=== PATIENT | male | born 1965 | race Caucasian/White ===

== ENCOUNTER 2020-10-31 06:58 | Emergency (ER) | payer BC ==
[2020-10-31] MEDS ORDERED: NA CHLORIDE 0.9% 1,000 ML ONE (08:04)
[2020-10-31 08:09] LABS: Potassium 4.2 mmol/L (3.5-5.1)
[2020-10-31 08:19] LABS: Absolute Lymphocytes (CBC) 0.7 K/uL (0.7-4.9); Basophils % 0.7 % (0-1.3); Hematocrit 41.9 % (39.6-49.0); Lymphocytes % 9.7 % (15.3-44.8); MPV 9.2 fL (7.6-11.3); RBC Red Blood Cell Count 4.91 M/uL (4.33-5.43)
--- NOTE | 2020-10-31 08:27 | RAD REPORT ---
EXAM DESCRIPTION: Yani Single View10/31/2020 8:16 am CLINICAL HISTORY: Pneumonia COMPARISON: none FINDINGS: Lungs appear mildly hazy. Heart is normal size IMPRESSION: Lungs appear mildly hazy which may indicate mild pneumonia
--- NOTE | 2020-10-31 08:28 | EDPHYS ---
Physician Documentation [facility] Name: Howard Ordaz Jr Age: 55 yrs Sex: Male : 1965 Arrival Date: 10/31/2020 Time: 06:59 Bed 5 Private MD: ED Physician John Hernandez HPI: 10/31 07:23 This 55 yrs old Male presents to ER via Unassigned with complaints of rn Shortness Of Breath - covid+. 07:23 The patient has shortness of breath with light activity. Onset: The symptoms/episode rn began/occurred 1 week(s) ago. Duration: The symptoms are intermittent. The patient's shortness of breath is aggravated by exertion, light activity, is alleviated by rest. Associated signs and symptoms: Pertinent positives: non-productive cough, fever, Pertinent negatives: hemoptysis, loss of consciousness. Severity of symptoms: At their worst the symptoms were mild in the emergency department the symptoms are unchanged. The patient has not experienced similar symptoms in the past. The patient has not recently seen a physician. Reports COVID + 1 week ago, symptoms began 1.5 weeks ago, came in today because heart rate elevated. Reports mild sob with exertion. NO hx of heart or lung problems. Overall, doesn't feel like got worse. Just felt weak this morning so came to get checked. NO syncope. No chest pain. . Historical: - Allergies: 07:29 No Known Allergies; iw - Home Meds: 07:29 Lisinopril Oral [Active]; iw - PMHx: 07:29 Hypertension; iw - PSHx: 07:29 testicular torsion; iw - Immunization history:: Adult Immunizations not up to date. - Social history:: Smoking status: Patient/guardian denies using tobacco, the patient reports quitting approximately 4 years ago. - Family history:: not pertinent. - Hospitalizations: : No recent hospitalization is reported. 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 Exam: 07:23 Constitutional: This is a well developed, well nourished patient who is awake, alert, rn and in no acute distress. Ambulatory to room without difficulty or distress Head/Face: Normocephalic, atraumatic. Eyes: Pupils equal round and reactive to light, extra-ocular motions intact. ENT: NO stridor Cardiovascular: Regular rate and rhythm. No pulse deficits. Respiratory: Speaking full sentences. No increased work of breathing, no retractions or nasal flaring. Abdomen/GI: soft, non-tender Skin: Warm, dry MS/ Extremity: Pulses equal, no cyanosis. Neuro: Awake and alert, GCS 15, normal gait. 08:00 ECG was reviewed by the Attending Physician. rn Vital Signs: 07:26 BP 121 / 80; Pulse 87; Resp 18 S; Temp 98.2; Pulse Ox 94% on R/A; Weight 90.72 kg; iw Height 5 ft. 8 in. (172.72 cm); 08:39 BP 121 / 79; Pulse 83; Resp 17 S; Pulse Ox 97% on R/A; jd3 07:26 Body Mass Index 30.41 (90.72 kg, 172.72 cm) iw MDM: 07:15 Patient medically screened. rn 08:26 Differential diagnosis: Bronchitis pneumonia, pulmonary edema. Differential diagnosis: rn dehydration, electrolyte disorder. Data reviewed: vital signs, nurses notes, lab test result(s), radiologic studies, plain films, and as a result, I will discharge patient. Counseling: I had a detailed discussion with the patient and/or guardian regarding: the historical points, exam findings, and any diagnostic results supporting the discharge/admit diagnosis, lab results, radiology results, the need for outpatient follow up, to return to the emergency department if symptoms worsen or persist or if there are any questions or concerns that arise at home. Response to treatment: the patient's symptoms have mildly improved after treatment, and as a result, I will discharge patient. Special discussion: I discussed with the patient/guardian in detail that at this point there is no indication for admission to the hospital. It is understood, however, that if the symptoms persist or worsen the patient needs to return immediately for re-evaluation. ED course: No oxygen requirement, cxr with mild bilateral infiltrates, no pneumothorax. Already on steroids, will dc home with pcp f/u and return precautions, should be getting over this soon. . 10/31 07:23 Order name: CBC with Diff; Complete Time: 08:24 rn 10/31 07:23 Order name: Basic Metabolic Panel; Complete Time: 08:24 rn 10/31 07:23 Order name: XRAY Chest (1 view); Complete Time: 08:28 rn 10/31 07:23 Order name: IV Start; Complete Time: 07:43 rn 10/31 07:23 Order name: EKG; Complete Time: 07: rn 10/31 07:23 Order name: EKG - Nurse/Tech; Complete Time: 07:59 rn EC:00 Rate is 85 beats/min. Rhythm is regular. QRS [place] is Normal. [place] interval is normal. QRS rn interval is normal. QT interval is normal. No Q waves. T waves are Normal. No ST changes noted. Clinical impression: Normal ECG. Interpreted by me. Reviewed by me. Administered Medications: 07:59 Drug: NS 0.9% 1000 ml Route: IV; Rate: 1000 ml; Site: left antecubital; jd3 08:52 Follow up: Response: No adverse reaction; IV Status: Completed infusion; IV Intake: jd3 1000ml Disposition: 10/31/20 08:28 Discharged to Home. Impression: Coronavirus infection, unspecified, Dehydration, Hypocalcemia. - Condition is Stable. - Discharge Instructions: Dehydration, Adult, Hypocalcemia, Adult, COVID-19. - Medication Reconciliation Form, Thank You Letter, Antibiotic Education, Prescription Opioid Use form. - Follow up: Private Physician; When: As needed; Reason: Recheck today's complaints, Re-evaluation by your physician. - Problem is an ongoing problem. - Symptoms have improved. Signatures: Dispatcher [employer] Salma Frausto, RN John Newsome MD MD rn Davies, Jonathon, RN RN jd3 Corrections: (The following items were deleted from the chart) 08:28 08:28 10/31/2020 08:28 Discharged to Home. Impression: Coronavirus infection, rn unspecified; Dehydration. Condition is Stable. Forms are Medication Reconciliation Form, Thank You Letter, Antibiotic Education, Prescription Opioid Use. Follow up: Private Physician; When: As needed; Reason: Recheck today's complaints, Re-evaluation by your physician. Problem is an ongoing problem. Symptoms have improved. rn 08:52 08:28 10/31/2020 08:28 Discharged to Home. Impression: Coronavirus infection, jd3 unspecified; Dehydration; Hypocalcemia. Condition is Stable. Forms are Medication Reconciliation Form, Thank You Letter, Antibiotic Education, Prescription Opioid Use. Follow up: Private Physician; When: As needed; Reason: Recheck today's complaints, Re-evaluation by your physician. Problem is an ongoing problem. Symptoms have improved. rn
--- NOTE | 2020-10-31 08:28 | ER ---
Nurse's Notes [facility] Name: Howard Ordaz Jr Age: 55 yrs Sex: Male : 1965 Arrival Date: 10/31/2020 Time: 06:59 Bed 5 Private MD: Diagnosis: Coronavirus infection, unspecified;Dehydration;Hypocalcemia Presentation: 10/31 07:26 Chief complaint: Patient states: COVID+ X 1 week, this morning felt like her heart rate iw was fast and felt a little SOB. Coronavirus screen: Client presents with at least one sign or symptom that may indicate coronavirus-19. Standard/surgical mask placed on the client. Provider contacted for isolation considerations. Client reports previous positive COVID test result. Ebola Screen: Patient negative for fever greater than or equal to 101.5 degrees Fahrenheit, and additional compatible Ebola Virus Disease symptoms Patient denies exposure to infectious person. Patient denies travel to an Ebola-affected area in the 21 days before illness onset. No symptoms or risks identified at this time. Initial Sepsis Screen: Does the patient meet any 2 criteria? No. Patient's initial sepsis screen is negative. Does the patient have a suspected source of infection? No. Patient's initial sepsis screen is negative. Risk Assessment: Do you want to hurt yourself or someone else? Patient reports no desire to harm self or others. Onset of symptoms was October 25, 2020. 07:26 Method Of Arrival: Ambulatory iw 07:26 Acuity: ARTURO 3 iw Triage Assessment: 08:01 Respiratory: Onset: The symptoms/episode began/occurred gradually, the patient has mild jd3 shortness of breath. Historical: - Allergies: 07:29 No Known Allergies; iw - Home Meds: 07:29 Lisinopril Oral [Active]; iw - PMHx: 07:29 Hypertension; iw - PSHx: 07:29 testicular torsion; iw - Immunization history:: Adult Immunizations not up to date. - Social history:: Smoking status: Patient/guardian denies using tobacco, the patient reports quitting approximately 4 years ago. - Family history:: not pertinent. - Hospitalizations: : No recent hospitalization is reported. Screenin:01 Abuse screen: Denies threats or abuse. Nutritional screening: No deficits noted. jd3 Tuberculosis screening: No symptoms or risk factors identified. Fall Risk Ambulatory Aid- None/Bed Rest/Nurse Assist (0 pts). Gait- Normal/Bed Rest/Wheelchair (0 pts) Mental Status- Oriented to own ability (0 pts). Total S[place]ato Fall Scale indicates No Risk (0-24 pts). Assessment: 08:00 General: Appears in no apparent distress. comfortable, Behavior is calm, cooperative, jd3 appropriate for age. Pain: Complains of pain in chest Quality of pain is described as pressure. Neuro: Level of Consciousness is awake, alert, obeys commands, Oriented to person, place, time, situation. Cardiovascular: Capillary refill < 3 seconds Patient's skin is warm and dry. Rhythm is regular. Respiratory: Reports shortness of breath Airway is patent Respiratory effort is even, unlabored, Respiratory pattern is regular, symmetrical. GI: No signs and/or symptoms were reported involving the gastrointestinal system. : No signs and/or symptoms were reported regarding the genitourinary system. EENT: No signs and/or symptoms were reported regarding the EENT system. Derm: Skin is intact, Skin is dry, Skin is normal, Skin temperature is warm. Musculoskeletal: Circulation, motion, and sensation intact. Range of motion: intact in all extremities. 08:39 Reassessment: Patient appears in no apparent distress at this time. Patient and/or jd3 family updated on plan of care and expected duration. Pain level reassessed. Patient is alert, oriented x 3, equal unlabored respirations, skin warm/dry/pink. resting in bed, awaiting saline bolus to finish prior to discharge. 08:48 Reassessment: Patient appears in no apparent distress at this time. Patient and/or jd3 family updated on plan of care and expected duration. Pain level reassessed. Patient is alert, oriented x 3, equal unlabored respirations, skin warm/dry/pink. pt reported understanding of discharge instructions, even and steady gait. Vital Signs: 07:26 BP 121 / 80; Pulse 87; Resp 18 S; Temp 98.2; Pulse Ox 94% on R/A; Weight 90.72 kg; iw Height 5 ft. 8 in. (172.72 cm); 08:39 BP 121 / 79; Pulse 83; Resp 17 S; Pulse Ox 97% on R/A; jd3 07:26 Body Mass Index 30.41 (90.72 kg, 172.72 cm) iw ED Course: 06:59 Patient arrived in ED. as 07:15 John Hernandez MD is Attending Physician. rn 07:20 Rj Pierce, RACIEL is Primary Nurse. jd3 07:28 Triage completed. iw 07:29 Arm band placed on. iw 08:00 Inserted saline lock: 20 gauge in left antecubital area, using aseptic technique. Blood jd3 collected. 08:01 EKG done, by ED staff, reviewed by John Hernandez MD. jd3 08:02 Patient has correct armband on for positive identification. Bed in low position. Call jd3 light in reach. Side rails up X 1. 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 Pulse ox on. NIBP on. 08:16 XRAY Chest (1 view) In Process Unspecified. EDMS 08:51 No provider procedures requiring assistance completed. IV discontinued, intact, jd3 bleeding controlled, No redness/swelling at site. Pressure dressing applied. Administered Medications: 07:59 Drug: NS 0.9% 1000 ml Route: IV; Rate: 1000 ml; Site: left antecubital; jd3 08:52 Follow up: Response: No adverse reaction; IV Status: Completed infusion; IV Intake: jd3 1000ml Intake: 08:52 IV: 1000ml; Total: 1000ml. jd3 Outcome: 08:28 Discharge ordered by . rn 08:51 Discharged to home ambulatory. jd3 08:51 Condition: stable 08:51 Discharge instructions given to patient, Instructed on discharge instructions, follow up and referral plans. Demonstrated understanding of instructions, follow-up care. 08:52 Patient left the ED. jd3 Signatures: Dispatcher [employer] Umu Langston Irene, RN RN John Hernandez MD MD rn Davies, Jonathon, RN RN jd3 Corrections: (The following items were deleted from the chart) 08:02 08:02 Pulse ox on. NIBP on. jd3 jd3
[2020-10-31 09:01] VITALS: TEMP 98.2
[2020-10-31 09:02] VITALS: BP 121/79; O2SAT 97
--- NOTE | 2020-11-01 08:53 | EKG ---
Test Date: 2020-10-31 Test Time: 07:54:06 Director Of Public Works: BAKARI MEASUREMENT RESULTS: Intervals: Rate: 85 WV: 134 QRSD: 86 QT: 364 QTc: 433 [place]: P: 62 WV: 134 QRS: 47 T: 39 INTERPRETIVE STATEMENTS: Normal sinus rhythm Normal ECG Compared to ECG 09/02/2014 09:44:02 No significant changes Electronically Signed On 11-01-20 08:50:28 CDT by Manohar Steele
== END 2020-10-31 08:52 | disposition home or self-care (01) ==
LOC: ER 06:58
DX: U07.1 COVID-19 (principal); E86.0 Dehydration; E83.51 Hypocalcemia; I10 Essential (primary) hypertension
CPT/HCPCS: 85025; 80048; 36415; 71045; J7030; 93005; 96360; 99284